=== PATIENT | male | born 1995 | race African-American/Black ===

== ENCOUNTER 2017-11-06 17:46 | Emergency (ER) | payer MEDICAID, OTHER ==
[~2017-11-06] VITALS: Ht 190.5 cm; Wt 88.5 kg
[2017-11-06 23:04] VITALS: BP 139/100
== END 2017-11-07 01:41 | disposition left against medical advice (07) ==
LOC: ER 17:51
DX: H57.11 Ocular pain, right eye (principal); R51 Headache; Z53.21 Procedure and treatment not carried out due to patient leaving prior to being seen by health care provider
CPT/HCPCS: 70450; 70486

== ENCOUNTER 2017-11-12 10:33 | Emergency (ER) | payer MEDICAID ==
[~2017-11-12] VITALS: Ht 188 cm; Wt 90.3 kg
[2017-11-12 10:55] VITALS: BP 144/85
== END 2017-11-12 11:24 | disposition home or self-care (01) ==
LOC: ER 10:34
DX: S00.81XA Abrasion of other part of head, initial encounter (principal); S80.211A Abrasion, right knee, initial encounter; F17.210 Nicotine dependence, cigarettes, uncomplicated; X58.XXXA Exposure to other specified factors, initial encounter; Y93.89 Activity, other specified; Y99.8 Other external cause status; Y92.89 Other specified places as the place of occurrence of the external cause